=== PATIENT | male | born 1985 | race African-American/Black ===

== ENCOUNTER 2022-03-26 13:30 | Emergency (ER) | payer MEDICAID ==
[~2022-03-26] VITALS: Ht 185.4 cm; Wt 142.0 kg
[2022-03-26] MEDS ORDERED: BACITRACIN ZINC OINT UDPKT TOP ONE (16:30)
[2022-03-26] MEDS ORDERED: TETANUS, DIPHTHERIA, PERTUSSIS VAC/PF 0.5ML (>10YR OLD) IM ONE (16:30)
[2022-03-26] MEDS ORDERED: IBUPROFEN 600MG TABLET PO ONE (16:30)
[2022-03-26] MEDS ORDERED: LIDOCAINE HCL/PF 1% 10 MG/ML 5ML VIAL INFIL ONE (16:30)
[2022-03-26] MEDS ORDERED: IBUP-2029 MT (16:34)
[2022-03-26] MEDS ORDERED: BO1 TP (16:34)
[2022-03-26 17:21] VITALS: BP 121/88
== END 2022-03-26 17:21 | disposition home or self-care (01) ==
LOC: ER 13:30
DX: S81.812A Laceration without foreign body, left lower leg, initial encounter (principal); W26.8XXA Contact with other sharp object(s), not elsewhere classified, initial encounter; Y93.89 Activity, other specified; Y92.89 Other specified places as the place of occurrence of the external cause; Y99.8 Other external cause status
CPT/HCPCS: 12002; 90471; 90715; 99283; J3490; Z7610

== ENCOUNTER 2022-04-08 15:13 | Emergency (ER) | payer MEDICAID ==
[~2022-04-08] VITALS: Ht 177.8 cm; Wt 81.0 kg
[~2022-04-08 15:13] MED LIST: BO1 TP; IBUP-2029 MT
[2022-04-08 15:57] VITALS: BP 149/82
== END 2022-04-08 16:31 | disposition home or self-care (01) ==
LOC: ER 15:13
DX: Z48.02 Encounter for removal of sutures (principal)
CPT/HCPCS: 99281